=== PATIENT | female | born 1955 | race Caucasian/White ===

== ENCOUNTER 2016-10-22 22:49 | Emergency (ER) | payer OTHER ==
[2016-10-22] MEDS ORDERED: KETOROLAC TROMETHAMINE 60 MG/2 ML VIAL IM ONE (22:54)
--- NOTE | 2016-10-22 22:54 | PDOC ---
History of Present Illness - General Chief Complaint: Injury Stated Complaint: LT WRIST PAIN Time Seen by Provider: 10/22/16 22:51 History Source: Patient Exam Limitations: No Limitations - History of Present Illness Initial Comments: 10/22/16 23:21 This is a 61-year-old female who comes in complaining of fell on outstretched left hand. Patient was putting a large bag into a garbage can that was too small when she lost her balance and fell onto her outstretched left hand. Patient is complaining of pain in her left wrist. Patient also is complaining of an abrasion of her left stevenson. Patient did not hit her head did not pass out and denies any other complaints. Patient's tetanus status is unknown. PAST MEDICAL HISTORY: no significant history PAST SURGICAL HISTORY: no significant history FAMILY HISTORY: no pertinant history SOCIAL HISTORY: Pt lives with family and is employed. MEDICATIONS: reviewed ALLERGIES: As per nursing notes Review of Systems General: No fevers or chills, no weakness, no weight loss HEENT: No change in vision. No sore throat,. No ear pain CardioVascular: No chest pain or shortness of breath Respiratory:No cough, or wheezing. Gastrointestinal: no nausea, vomitting, diarrhea or constipation, No rectal bleeding Genitourinary: No dysuria, hematuria, or frequency Musculoskeletal: No joint or muscle pain or swelling Neurologic: No headache, vertigo, dizziness or loss of consciousness Psychiatric: nor depression Skin: No rashes or easy bruising Endocrine: no increased thirst or abnormal weight change Allergic: no skin or latex allergy All other systems reviewed and normal GENERAL: The patient is awake, alert, and fully oriented, in no acute distress. HEAD: Normal with no signs of trauma. EYES: Pupils equal, round and reactive to light, extraocular movements intact, sclera anicteric, conjunctiva clear. EXTREMITIES: Left wrist, there is moderate swelling with tenderness over palpation of the distal radius with some deformity. Neurovascular is intact NEUROLOGICAL: Normal speech, normal gait. PSYCH: Normal mood, normal affect. SKIN: Warm, Dry, normal turgor, no rashes or lesions noted. X-ray plus fracture distal radius minimally displaced. Procedure note: Metal splint applied to left wrist neurovascular post splint application intact Assessment and plan: This is a 61-year-old female who comes in complaining of fell on outstretched left hand with pain to left wrist. Patient has a minimally displaced distal radius fracture for which she was splinted and put in a sling. Patient will follow-up with an orthopedist in the morning. Patient given Dr. Dasilva for orthopedic Past History - Past Medical History Allergies/Adverse Reactions: Allergies Allergy/AdvReac Type Severity Reaction Status Date / Time No Known Allergies Allergy Verified 07/30/12 09:49 Home Medications: Ambulatory Orders Amoxicillin/Potassium Clav [Augmentin 875-125 Tablet] 1 each PO BID 10/22/16 Atorvastatin Ca [Lipitor] 10 mg PO HS 10/22/16 - Immunization History Td Vaccination: Yes Immunization Up to Date: Yes - Psycho/Social/Smoking Cessation Hx Anxiety: No Suicidal Ideation: No Smoking Status: No Smoking History: Never smoked Have you smoked in the past 12 months: No Number of Cigarettes Smoked Daily: 0 Hx Alcohol Use: Yes (OCCAS.) Substance Use Type: None *DC/Admit/Observation/Transfer Diagnosis at time of Disposition: Left wrist fracture Qualifiers: Encounter type: initial encounter Fracture type: closed Qualified Code(s): S62.102A - Fracture of unspecified carpal bone, left wrist, initial encounter for closed fracture - Discharge Dispostion Disposition: HOME Condition at time of disposition: Stable Admit: No - Patient Instructions Printed Discharge Instructions: How to Use a Sling Additional Instructions: wear your splint and use your sling while awake you can take the sling off at night. Leave the splint in place until you see the orthopedist. Call Dr. Woo in the morning at [phone] for an appointment. For the pain you can take Tylenol or ibuprofen or if he needs something stronger Percocet one tablet every 4 hours as needed Return to the emergency department immediately with ANY new, persistent or worsening symptoms. Continue any medications as previously prescribed by your physician. . Please make sure your doctor reviews the results of your emergency evaluation. Thank you for coming to the Emergency Department today for your care. It was a pleasure to see you today. Please note that your evaluation is INCOMPLETE until you follow-up with your doctor.
[2016-10-22 23:07] VITALS: BP 131/73; PULSE 74; TEMP 98.4; BMI 23.3
[2016-10-22] MEDS ORDERED: DIPHTH,PERTUSS(ACELL),TET 0.5 ML DISP.SYRIN IM ONE (23:20)
[2016-10-22] MEDS ORDERED: ONDANSETRON *ODT* 4 MG TABLET SL ONE (23:20)
[2016-10-22] MEDS ORDERED: ONDANSETRON *ODT* 4 MG TABLET ONE (23:23)
== END 2016-10-22 23:36 | disposition home or self-care (01) ==
LOC: FER 22:49
PROC: 2W3FX1Z Immobilization of Left Hand using Splint (ICD-10-PCS; principal; 2016-10-22)
DX: S52.615A Nondisplaced fracture of left ulna styloid process, initial encounter for closed fracture (principal); W18.39XA Other fall on same level, initial encounter; Y93.89 Activity, other specified; Y92.89 Other specified places as the place of occurrence of the external cause
CPT/HCPCS: 73110-TC-LT; 90715; 99282-25

== ENCOUNTER 2020-04-25 12:21 | Emergency (ER) | payer OTHER | END 2020-04-25 14:45 | disposition home or self-care (01) | LOC: JVIRT 12:21 | DX: Z03.818 Encounter for observation for suspected exposure to other biological agents ruled out (principal) | CPT/HCPCS: C9803; Q3014-GT; U0003 ==

== ENCOUNTER 2020-06-05 10:59 | Emergency (ER) | payer OTHER | END 2020-06-05 11:37 | disposition home or self-care (01) | LOC: JVIRT 10:59 | DX: Z11.52 Encounter for screening for COVID-19 (principal) | CPT/HCPCS: C9803; G2251-GT; Q3014-GT; U0003 ==

== ENCOUNTER 2021-03-15 11:49 | Emergency (ER) | payer OTHER ==
[2021-03-15 12:03] VITALS: BP 159/77; PULSE 60; TEMP 97.9; BMI 24.2
[2021-03-15] MEDS ORDERED: IBUPROFEN 400 MG TABLET (FP) PO ONE ×2 (12:04→12:05)
== END 2021-03-15 13:10 | disposition home or self-care (01) ==
LOC: FER 11:49
DX: S62.101A Fracture of unspecified carpal bone, right wrist, initial encounter for closed fracture (principal); W01.0XXA Fall on same level from slipping, tripping and stumbling without subsequent striking against object, initial encounter
CPT/HCPCS: 73110-TC-RT-FY; 73130-TC-RT-FY; 99283-25